=== PATIENT | female | born 1955 | race Caucasian/White ===

== ENCOUNTER 2021-04-10 10:15 | Emergency (ER) | payer OTHER, SELFPAY ==
[2021-04-10] VITALS (7 sets, daily range): BP systolic 127–165; BP diastolic 64–78; PULSE 54–66; RESP 16–18; TEMP 36.7; O2SAT 95–99; BMI 43.6
--- NOTE | 2021-04-10 10:59 | ED.BACK ---
HPI - Back Pain/Injury General Chief Complaint: Extremity Injury, Upper Stated Complaint: pain left shoulder, neck, back Time Seen by Provider: 04/10/21 10:58 Source: patient Mode of arrival: Ambulatory Limitations: no limitations History of Present Illness HPI Narrative: 66-year-old female comes to the emergency department with complaint of left shoulder neck and back pain. Patient states she thinks it started after moving a table. She then moved the table today before or may be the same morning. She has her left hand upper thoracic region she has increased pain with movement. She can lift and move her arm but sometimes has increased pain especially if she tries to lift something heavy. Patient states that she saw a chiropractor who did x-rays but told her she needed to come to the ER for pain management. They told her it was a muscular problem. Patient denies any fevers or chills. She has had nasal congestion. She denies any chest pain or radiation to the anterior chest. No shortness of breath. She denies radiation of pain down her arm. No numbness, tingling or weakness. No difficulty with direct care supervisor. No nausea or vomiting. No diaphoresis. No other GI or urinary symptoms. No swelling. Patient is an insulin-dependent diabetic with known coronary disease with cardiac stents she is on Xarelto, losartan, Imdur, pramipexole, famotidine, asthma per is all and citalopram. Patient states no known AFib. She states she had a cardiac catheterization a week they told her that her stents were intact there was some disease between the stents but was not easily accessible area and that she did not require any other changes or interventions at this time. She denies other surgeries besides prior shoulder surgery bilaterally. She is allergic to sulfa. She denies tobacco, alcohol or illicit. She has tried a lidocaine patch which was minimally helpful. Edible marijuana last night. She has not taken any [id number] pain medications today but did take trazodone at 5:30. Related Data Home Medications Medication Instructions Recorded Confirmed citalopram 10 mg tablet 10 mg PO DAILY 04/10/21 04/10/21 esomeprazole magnesium 40 mg 40 mg PO QAM 04/10/21 04/10/21 granules delayed release for susp famotidine 20 mg tablet 20 mg PO BID 04/10/21 04/10/21 insulin glargine 100 unit/mL (3 40 unit SUBCUT BID 04/10/21 04/10/21 mL) subcutaneous pen (Basaglar KwikPen U-100 Insulin) isosorbide mononitrate 60 mg 60 mg PO DAILY 04/10/21 04/10/21 tablet,extended release 24 hr losartan 50 mg tablet 75 mg PO DAILY 04/10/21 04/10/21 pramipexole 1.5 mg tablet 1.5 mg PO BID 04/10/21 04/10/21 rivaroxaban 20 mg tablet (Xarelto) 20 mg PO DAILY 04/10/21 04/10/21 Previous Rx's Medication Instructions Recorded diazepam 10 mg tablet (Valium) 10 mg PO TID PRN 1 Days #10 tab 04/10/21 oxycodone 5 mg tablet 5 mg PO QID PRN #10 tab 04/10/21 Allergies Allergy/AdvReac Type Severity Reaction Status Date / Time Sulfa (Sulfonamide Allergy Mild Verified 04/10/21 10:39 Antibiotics) Review of Systems Review of Systems ROS Unobtainable: All systems reviewed & are unremarkable except as noted in HPI and below Exam Narrative Exam Narrative: GENERAL: Alert and oriented x three, female in moderate distress HEENT: Head normocephalic, atraumatic, EOMI, pupils reactive, face symmetric, moist mucous membranes NECK: Supple, full range of motion CARDIOVASCULAR: Regular rate and rhythm without murmurs, rubs or gallops. RESPIRATORY: Breath sounds equal bilaterally, no wheezes rales or rhonchi. ABDOMEN: Soft, nontender. Normoactive bowel sounds all 4 quadrants. No guarding or rebound, rigidity, no mass : No CVA tenderness BACK: No cervical, thoracic or lumbar vertebral point tenderness. Patient has decreased range of motion. Patient's gait is normal. Muscle strength equal 5/5 in upper extremities with equal automotive welder. Patient does not have any bony tenderness. She does have muscle tightness left upper thoracic trapezius latissimus region. Patient does appear to have increased pain when she lifts her arm to move her phone. EXTREMITIES: Normal range of motion, no clubbing or edema. Neurovascularly intact NEUROLOGICAL: Cranial nerves II through XII grossly intact. Moving all extremities SKIN: Warm, dry, no petechiae, no rashes or lesions, no vesicles or erythema. Initial Vital Signs Initial Vital Signs: Vital Signs Pulse Rate 66 04/10/21 10:34 Blood Pressure 142/64 H 04/10/21 10:34 Pulse Oximetry 97 04/10/21 10:34 Course Orders Ordered: ED Orders 04/10/21 11:14 XR chest 1V Stat 04/10/21 11:20 Complete Blood Count AUTO DIFF Stat Comprehensive Metabolic Panel Stat Lipase Stat NT-proBNP (BNP-Adult 18+) Stat Partial Thromboplastin Time Stat Prothrombin Time INR Stat Troponin & CK Cardiac Panel Stat 04/10/21 11:24 EKG-12 Lead Stat 04/10/21 11:25 COVID19 -Nasal swab/Pre-Proc Stat Discontinued Medications Ketorolac Tromethamine (Ketorolac 30 Mg/Ml Vial) 15 mg IV NOW ONE Stop: 04/10/21 11:16 Last Admin: 04/10/21 11:29 Dose: 15 mg Documented by: JORDAN Reevaluation(s) Reevaluation #1: Patient has had some improvement she states she does not feel quite as spasm a she still has some pain but feels like she has moved in the right direction. 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 She was on a statin but is not any longer and they are trying to set her up with the injectable statin medication. Patient also notes she has been having some nasal drainage for several weeks without fevers. She has tried Mucinex but has not tried an antihistamine. We discussed trying a Claritin or loratadine or possibly Benadryl. Her swab today is negative and she has had persistent symptoms for several weeks with mostly nasal congestion making my suspicion for COVID infection much lower. Vital Signs Vital signs: Vital Signs - 8 hr 04/10/21 11:00 04/10/21 11:30 04/10/21 11:32 Pulse Rate 63 66 62 Respiratory Rate Blood Pressure 127/72 165/75 H Pulse Oximetry 96 96 96 04/10/21 12:00 04/10/21 13:00 Pulse Rate 54 L 65 Respiratory Rate 16 Blood Pressure 153/78 H Pulse Oximetry 95 99 MDM - Back Pain/Injury Lab Data Result diagrams: 04/10/21 11:20 04/10/21 11:20 Labs: Lab Results 04/10/21 04/10/21 04/10/21 Range/Units 11:20 11:20 11:20 WBC 9.8 (4.5-11.0) X10^3/uL RBC 4.69 (4.0-5.2) X10^6/uL Hgb 14.6 (12.0-16.0) g/dL Hct 42.8 (36-46) % MCV 91.1 (80-100) fL MCH 31.0 (26-34) PG MCHC 34.0 (30-36) % RDW 13.1 (11.6-14.8) % Plt Count 271 (150-400) X10^3/uL Neut % (Auto) 72.4 (50-75) % Lymph % (Auto) 17.1 L (25-40) % [place] % (Auto) 6.6 (3-14) % Eos % (Auto) 3.1 (2-4) % Baso % (Auto) 0.8 (0-2) % Neut # (Auto) 7100 H (0398-7721) /uL Lymph # (Auto) 1700 (3047-5855) /uL [place] # (Auto) 600 (0-900) /uL Eos # (Auto) 300 (0-450) /uL Baso # (Auto) 100 (0-100) /uL PT 12.7 (10.1-12.7) SECONDS INR 1.1 (0.9-1.3) APTT 39 H (26.4-36.2) SECONDS Sodium 135 L (137-145) mmol/L Potassium 4.2 (3.4-5.1) mmol/L Chloride 99 (98-107) mmol/L Carbon Dioxide 29 (22-32) mmol/L BUN 24 H (7-17) mg/dL Creatinine 0.71 (0.52-1.04) mg/dL Estimated GFR > 60.0 (>60) mL/min BUN/Creatinine Ratio 33.8 H (6-22) Glucose 279 H (80-110) mg/dL Calcium 9.7 (8.4-10.2) mg/dL Total Bilirubin 0.7 (0.2-1.3) mg/dL AST 79 H (14-36) IU/L ALT 126 H (<35) IU/L Alkaline Phosphatase 156 H (38-126) U/L Total Creatine Kinase 564 H (30-135) U/L CK-MB (CK-2) 16.60 H (<2.37) ng/mL CK-MB (CK-2) Rel Index 2.9 (1.5-5.0) % Troponin I < 0.012 (0.01-0.034) ng/mL NT-Pro-B Natriuret Pep 82 (<125) pg/mL Total Protein 8.0 (6.3-8.2) g/dL Albumin 4.6 (3.5-5.0) g/dL Globulin 3.4 (1.7-4.1) g/dL Albumin/Globulin Ratio 1.4 (1.0-2.8) Lipase 139 (23-300) U/L SARS-CoV-2 (PCR) (Negative) 04/10/21 Range/Units 11:25 WBC (4.5-11.0) X10^3/uL RBC (4.0-5.2) X10^6/uL Hgb (12.0-16.0) g/dL Hct (36-46) % MCV (80-100) fL MCH (26-34) PG MCHC (30-36) % RDW (11.6-14.8) % Plt Count (150-400) X10^3/uL Neut % (Auto) (50-75) % Lymph % (Auto) (25-40) % [place] % (Auto) (3-14) % Eos % (Auto) (2-4) % Baso % (Auto) (0-2) % Neut # (Auto) (3299-1855) /uL Lymph # (Auto) (8725-1133) /uL [place] # (Auto) (0-900) /uL Eos # (Auto) (0-450) /uL Baso # (Auto) (0-100) /uL PT (10.1-12.7) SECONDS INR (0.9-1.3) APTT (26.4-36.2) SECONDS Sodium (137-145) mmol/L Potassium (3.4-5.1) mmol/L Chloride (98-107) mmol/L Carbon Dioxide (22-32) mmol/L BUN (7-17) mg/dL Creatinine (0.52-1.04) mg/dL Estimated GFR (>60) mL/min BUN/Creatinine Ratio (6-22) Glucose (80-110) mg/dL Calcium (8.4-10.2) mg/dL Total Bilirubin (0.2-1.3) mg/dL AST (14-36) IU/L ALT (<35) IU/L Alkaline Phosphatase (38-126) U/L Total Creatine Kinase (30-135) U/L CK-MB (CK-2) (<2.37) ng/mL CK-MB (CK-2) Rel Index (1.5-5.0) % Troponin I (0.01-0.034) ng/mL NT-Pro-B Natriuret Pep (<125) pg/mL Total Protein (6.3-8.2) g/dL Albumin (3.5-5.0) g/dL Globulin (1.7-4.1) g/dL Albumin/Globulin Ratio (1.0-2.8) Lipase (23-300) U/L SARS-CoV-2 (PCR) Negative (Negative) Imaging Data Chest x-ray: Radiologist's Impression: [place] [address] XRay Report Signed Patient: Ailyn Stallworth MR#: [id number] : 1955 Acct:[id number] Age/Sex: 66 / F Date of Service: 04/10/21 Loc: ED Accession Number: [id number] ?? Procedure: XR chest 1V Ordering Provider: Carolyn Jackson D.O. PROCEDURE:? XR CHEST 1V ? INDICATIONS:? left thoracic back pain, heart cath last week ? TECHNIQUE:? One view of the chest was acquired.? ? COMPARISON:? [facility], CR, XR CHEST 2 VIEWS, 08/21/2020, 10:41.? [facility], CT, CT ANGIO CHEST ABDOMEN, 01/29/2020, 15:36.? [facility], CR, XR CHEST 1 VIEW, 01/29/2020, 15:13.? [facility], CR, XR CHEST 2 VIEWS, 07/20/2018, 12:29.? [facility], CR, XR CHEST 2 VIEWS, 07/04/2018, 14:32.? [facility], CR, CHEST 1VW (PORTABLE), 09/25/2014, 2:41.? [facility], CR, CHEST 2VW, 06/24/2014, 16:58.? [facility], CR, CHEST 2VW, 04/25/2014, 11:06. ? FINDINGS:? ? Surgical changes and devices:? None.? ? Lungs and pleura:? Low lung volumes are noted. This causes a crowded appearance to the lung markings and limits evaluation.? Minimal generalized interstitial prominence can be seen.? No focal infiltrates are seen. No large pneumothorax or large pleural effusions are seen. ? ? Mediastinum:? Mediastinal contours appear normal.? Heart size is normal.? ? Bones and chest wall:? No suspicious bony lesions.? Overlying soft tissues appear unremarkable.? ? IMPRESSION:? Low lung volumes with minimal generalized interstitial prominence.? Differential diagnosis includes artifact and mild pulmonary edema atypical infection (including COVID pneumonia) is considered to be less likely. ? If it would be helpful for clinical management decision making in this patient with this given history, please consider a dedicated chest CT with IV contrast or a short-term followup chest series (with PA and lateral views) performed in deep inspiration for further evaluation.? ? ? Dictated by: Dinh Connor M.D. on 04/10/2021 at 11:00 ? ? Approved by: Dinh Connor M.D. on 04/10/2021 at 11:02?? ECG Data Attestation: I personally reviewed and interpreted this ECG as follows: Prior ECG tracings: not available for review Interpretation: Rate of 64, [place] 218, QRS of 84, QTC 420. Nonspecific ST changes. First-degree AV block. No acute elevation no priors for comparison. MDM Narrative Medical decision making narrative: This is a 66-year-old female with left upper thoracic pain and muscle spasm. Patient's exam findings are consistent with this but she has had a cardiac catheterization recently which did not require new stents to be replaced but they did note some disease in between her stents which is currently being medically managed. With patient's recent catheterization the past week do feel would be appropriate for x-ray, labs and imaging for evaluation if these are negative I would suspect more musculoskeletal cause. Patient was given a dose of Toradol here in the department she had some improvement, her labs showed elevation in her LFTs and CK which she states are persistent and normal for her. Her troponin is negative after greater than 12 hours of symptoms which have been persistent constant. Chest x-ray shows possible crowding versus infection such as COVID or pulmonary edema but she has a specific left upper thoracic pain with negative COVID swab making my suspicion for COVID infection much lower. Although she has had nasal congestion for several weeks. She has not had any shortness of breath or clinical symptoms of pulmonary edema. Discussed with patient plan for muscle relaxer, Tylenol or ibuprofen in her home medications. If necessary a small amount of narcotic pain medication. We discussed that if her symptoms are changing or worsening she does need repeat evaluation as she has multiple medical issues. Discharge Plan Departure Patient Disposition: Home Clinical Impression: Acute left-sided thoracic back pain Instructions: Thoracic Back Pain Activity Restrictions/Additional Instructions: Your labs today do show a slight elevation in your liver enzymes. Please follow-up with your physician to have these followed. Your creatinine kinase is also elevated but this could be secondary to your recent cardiac catheterization. Your heart enzyme does not show any acute changes today. You may take muscle relaxer 1 tablet every 8 hours as needed. You may take Tylenol up to a 1000 mg every 8 hours as needed for pain. Lidocaine patch with this. If you have persistent pain you may take narcotic pain medication 1 tablet every 6 hours as needed. This medication can make you sleepy do not drive, perform hazardous activities or make any major decisions while taking it. This medication will make you constipated please take a stool softener once to twice daily until stools are soft and regular. [facility] Please return for rapidly worsening symptoms, fevers, pain that is radiating to new locations, new chest pain, shortness of breath, lightheadedness or passing out, swelling of extremities, numbness or tingling, weakness or other new or concerning symptoms. Prescriptions: New diazepam [Valium] 10 mg tablet 10 mg PO TID PRN (Reason: muscle spasm) 1 Days Qty: 10 0RF oxycodone 5 mg tablet 5 mg PO QID PRN (Reason: pain) Qty: 10 0RF No Action losartan 50 mg tablet 75 mg PO DAILY 0RF Label Comments: take 1 AND 1/2 tablets by mouth once daily citalopram 10 mg tablet 10 mg PO DAILY 0RF isosorbide mononitrate 60 mg tablet extended release 24 hr 60 mg PO DAILY 0RF Label Comments: take 1 tablet by mouth once daily famotidine 20 mg tablet 20 mg PO BID 0RF Label Comments: take 1 tablet by mouth twice a day pramipexole 1.5 mg tablet 1.5 mg PO BID 0RF Label Comments: take 1 tablet by mouth twice a day esomeprazole magnesium [address] for susp in packet 40 mg PO QAM 0RF Label Comments: take 40 milligrams by mouth every morning BEFORE BREAKFAST Dwaine Melissa U-100 Insulin 100 unit/mL (3 mL) insulin pen 40 unit SUBCUT BID 0RF Label Comments: inject 40 units subcutaneously twice a day Xarelto 20 mg tablet 20 mg PO DAILY 0RF Label Comments: take 1 tablet by mouth once daily
--- NOTE | 2021-04-10 11:14 | DI.RAD.S_ITS ---
PROCEDURE: XR CHEST 1V INDICATIONS: left thoracic back pain, heart cath last week TECHNIQUE: One view of the chest was acquired. COMPARISON: [facility], CR, XR CHEST 2 VIEWS, 08/21/2020, 10:41. [facility], CT, CT ANGIO CHEST ABDOMEN, 01/29/2020, 15:36. [facility], CR, XR CHEST 1 VIEW, 01/29/2020, 15:13. [facility], CR, XR CHEST 2 VIEWS, 07/20/2018, 12:29. [facility], CR, XR CHEST 2 VIEWS, 07/04/2018, 14:32. [facility], CR, CHEST 1VW (PORTABLE), 09/25/2014, 2:41. [facility], CR, CHEST 2VW, 06/24/2014, 16:58. [facility], CR, CHEST 2VW, 04/25/2014, 11:06. FINDINGS: Surgical changes and devices: None. Lungs and pleura: Low lung volumes are noted. This causes a crowded appearance to the lung markings and limits evaluation. Minimal generalized interstitial prominence can be seen. No focal infiltrates are seen. No large pneumothorax or large pleural effusions are seen. Mediastinum: Mediastinal contours appear normal. Heart size is normal. Bones and chest wall: No suspicious bony lesions. Overlying soft tissues appear unremarkable. IMPRESSION: Low lung volumes with minimal generalized interstitial prominence. Differential diagnosis includes artifact and mild pulmonary edema atypical infection (including COVID pneumonia) is considered to be less likely. If it would be helpful for clinical management decision making in this patient with this given history, please consider a dedicated chest CT with IV contrast or a short-term followup chest series (with PA and lateral views) performed in deep inspiration for further evaluation. Dictated by: Dinh Connor M.D. on 04/10/2021 at 11:00 Approved by: Dinh Connor M.D. on 04/10/2021 at 11:02
[2021-04-10 11:28] LABS: Add Manual Diff / Slide Review NO; Basophils Absolute Auto 100 /uL (0-100); Basophils Percent Auto 0.8 % (0-2); Eosinophils Absolute Auto 300 /uL (0-450); Eosinophils Percent Auto 3.1 % (2-4); Hematocrit 42.8 % (36-46); Hemoglobin 14.6 g/dL (12.0-16.0); Lymphocytes Absolute Auto 1700 /uL (1100-4500); Lymphocytes Percent Auto 17.1 % (25-40); Mean Corpuscular Volume 91.1 fL (80-100); Monocytes Absolute Auto 600 /uL (0-900); Monocytes Percent Auto 6.6 % (3-14); Neutrophils Absolute Auto 7100 /uL (1500-7000); Neutrophils Percent Auto 72.4 % (50-75); Platelet Count 271 X10^3/uL (150-400); Red Blood Cell Count 4.69 X10^6/uL (4.0-5.2); Red Cell Distribution Width 13.1 % (11.6-14.8); White Blood Cell Count 9.8 X10^3/uL (4.5-11.0)
[2021-04-10] MEDS: KETOROLAC 30 MG/ML VIAL 15 MG IV (11:29)
[2021-04-10 11:39] LABS: INR 1.1 (0.9-1.3); Prothrombin Time 12.7 SECONDS (10.1-12.7)
[2021-04-10 11:42] LABS: PTT Partial Thromboplastin Tim 39 SECONDS (26.4-36.2)
[2021-04-10 11:43] LABS: Alanine Aminotransferase 126 IU/L (<35); Albumin 4.6 g/dL (3.5-5.0); Albumin Globulin Ratio 1.4 (1.0-2.8); Alkaline Phosphatase 156 U/L (38-126); Aspartate Aminotransferase 79 IU/L (14-36); BUN Creatinine Ratio 33.8 (6-22); Bilirubin Total 0.7 mg/dL (0.2-1.3); Blood Urea Nitrogen 24 mg/dL (7-17); Calcium 9.7 mg/dL (8.4-10.2); Carbon Dioxide 29 mmol/L (22-32); Chloride 99 mmol/L (98-107); Creatine Kinase 564 U/L (30-135); Estimated Glomerular Filt Rate > 60.0 mL/min (>60); Globulin 3.4 g/dL (1.7-4.1); Glucose 279 mg/dL (80-110); HEMOLYSIS < 15 (0-50); Lipase 139 U/L (23-300); Potassium 4.2 mmol/L (3.4-5.1); Sodium 135 mmol/L (137-145)
[2021-04-10 11:49] LABS: COVID19 -Nasal RAPID Negative (Negative)
[2021-04-10 11:55] LABS: NT-proBNP (BNP-Adult 18+) 82 pg/mL (<125); Troponin I < 0.012 ng/mL (0.01-0.034)
[2021-04-10 11:58] LABS: CKMB % Relative Index 2.9 % (1.5-5.0)
== END 2021-04-10 13:00 | disposition home or self-care (01) ==
PROVIDERS: Emergency Provider Emergency Medicine
DX: M54.6 Pain in thoracic spine (principal); Z79.01 Long term (current) use of anticoagulants; Z20.822 Contact with and (suspected) exposure to COVID-19
CPT/HCPCS: 36415; 71045; 80053; 82550; 82553; 83690; 83880; 84484; 85025; 85610; 85730; 87635; 93005; 93010; 96374; 99284; C9803; J1885